=== PATIENT | male | born 1995 | race Two or more races ===

== ENCOUNTER 2022-02-14 10:59 | Outpatient (CLI) | payer OTHER, SELFPAY ==
[2022-02-14 15:23] LABS: SARS PCR* Negative SARS-CoV-2 (Negative)
== END 2022-02-14 11:00 | disposition home or self-care (01) ==
LOC: FBOREF 11:01
PROVIDERS: Visit Provider Orthopaedic Surgery
DX: Z20.822 Contact with and (suspected) exposure to COVID-19 (principal)
CPT/HCPCS: 87635

== ENCOUNTER 2022-02-18 09:31 | Day surgery (SDC) | payer OTHER, SELFPAY ==
[2022-02-18] VITALS (13 sets, daily range): BP systolic 100–128; BP diastolic 62–86; PULSE 56–78; RESP 16–18; TEMP 36.4–36.6; O2SAT 94–100; BMI 25.8
--- NOTE | 2022-02-18 09:44 | CRLHL7_ITS ---
For Patients: As a result of the Cures Act, medical imaging exams and procedure reports are released immediately into your electronic medical record. You may view this report before your referring provider. If you have questions, please contact your health care provider. INDICATION: Fracture. TECHNIQUE: Intraoperative C-arm fluoroscopy. IMPRESSION: Intraoperative C-arm fluoroscopy was provided. Fluoroscopy time 31.6 seconds. Three images were captured. Dictated by Pool Keane MD @ 02/18/2022 12:45:05 PM (Electronically Signed)
[2022-02-18] MEDS: LACTATED RINGERS 1000 ML 1,000 ML 100 ML IV (09:50)
[2022-02-18] MEDS: SODIUM CHLORIDE 0.9 % (FLUSH) 10 ML SYRINGE IVF (09:50)
[2022-02-18] MEDS: MIDAZOLAM HCL 1 MG/ML inj IVP (10:25)
[2022-02-18] MEDS: fentaNYL 100 MCG/2 ML inj IVP (10:25)
--- NOTE | 2022-02-18 10:27 | SUR.PREOP ---
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
--- NOTE | 2022-02-18 10:36 | W.PM.NB ---
Nerve Block Nerve Block Time Seen by Provider: 10:36 Date Seen: 02/18/22 Type of block requested by surgeon for post-operative analgesia: axillary Side: right Time out performed: Yes Verification of patient name: Yes Verification of date of : Yes Site marking: site marked Name of person performing procedure: [place] Continuous monitoring Was continuous monitoring of O2 sat, B/P, shelter monitor, recorded every 15 minutes?: Yes Procedure Checklist: sterile prep, needles and gloves Ultrasound guided. Images saved: Yes Medications given in 5ml increments after negative aspiration: Ropivicaine %: 0.5 mL: 20 Needle gauge: 22 and Lidocaine %: 2 mL: 10 Needle gauge: 22 Patient tolerated procedure well: Yes Additional comments: Needle noted adjacent to nerve Block Charges Block Charge (with Pro Fee): Brachial Plexus Use of Ultrasound Machine for Block: Yes- US Guidance/pain block
[2022-02-18] MEDS: CEFAZOLIN 2 GM INJ IVP (11:10)
--- NOTE | 2022-02-18 11:21 | SUR.OPER ---
PATIENT QUESTIONS ANSWERED SATISFACTORILY PREOPERATIVELY.? PATIENT BROUGHT TO OR #3 PER CART.? Patient positioned supine on OR #3 bed.? The perioperative?team supported arms bilaterally on arm boards.? Final approval of positioning by surgeon.?
--- NOTE | 2022-02-18 11:43 | P.ORPRC_ITS ---
Procedure Note Date of procedure: 02/18/22 Procedure: SURGEON: Tomas Butterfield MD OUTPATIENT PHARMACY MANAGER: BRYANNA Kline PREOPERATIVE DIAGNOSIS: Right hand reverse Mistry fracture POSTOPERATIVE DIAGNOSIS: Right hand reverse Mistry fracture NAME OF OPERATION: Closed reduction percutaneous pinning ANESTHESIA: Axillary block plus monitored anesthesia care ESTIMATED BLOOD LOSS: 0 mL COMPLICATIONS: None SPECIMENS: None DRAINS: None PREOPERATIVE ANTIBIOTICS: Ancef 2 grams INDICATIONS: The patient is a 26-year-old male who for injured his right hand, sustaining a reverse Mistry fracture. Since this is an unstable injury, reduction and pin fixation were recommended. The risks, benefits and expected outcomes were discussed in detail. These included but were not limited to: Infection, bleeding, injury to blood vessel or nerve, venous thromboembolism. All questions were answered to their sati sfaction. Use of an pharmacy affairs assistant was necessary throughout the case for patient positioning and safety, maintenance of the reduction, pin site dressing and splint application. PROCEDURE: An axillary block was placed by Anesthesia. The patient was placed supine on the operating room table. IV sedation was administered. The upper extremity was prepped and draped in the usual sterile fashion. The r eduction was obtained with longitudinal traction and volar force on the base of the small finger metacarpal. The image intensifier was used to confirm an anatomic reduction. We placed a 0.062 in K-wire retrograde through the base of the small finger metacarpal shaft, driving it into the base of the ring finger metacarpal shaft for. Its placement was confirmed with the image intensifier. We placed a 2nd 0.062 in K-wire just distal to this, driving it proximally across the fracture site, into the carpus. This construct was imaged in multiple views and was felt to have an excellent reduction with well placed pins. The pins were cut off and were appropriately dressed. A well-padded short-arm dorsovolar splint was applied. Sponge and needle counts were correct x2. The patient tolerated the procedure well. There were no apparent complications. They were carefully transferred to the hospital bed and taken to the postanesthesia care unit in satisfactory condition. PLAN: The patient will be discharged home. They will work on elevation of the hand. They will follow up in the office next week to assess the pin sites with three views of the hand out of the splint prior to being seen in preparation for cast immobilization. I will plan to see the patient at 6 weeks postoperatively to discontinue the cast and pins and mobilize his hand.
--- NOTE | 2022-02-18 11:57 | W.ANESCHARGE ---
Anesthesia Charges Start Date/Time Anesthesia Start Date: 02/18/22 Anesthesia Start Time: 10:58 Stop Date/Time Anesthesia Stop Date: 02/18/22 Anesthesia Stop Time: 11:50 Summary Emergency: No
--- NOTE | 2022-02-18 12:37 | W.ANESCHARGE ---
Anesthesia Charges Start Date/Time Anesthesia Start Date: 02/18/22 Anesthesia Start Time: 10:58 Stop Date/Time Anesthesia Stop Date: 02/18/22 Anesthesia Stop Time: 11:50 Summary Emergency: No
== END 2022-02-18 14:43 | disposition home or self-care (01) ==
PROVIDERS: Visit Provider Orthopaedic Surgery
PROC: (CPT 26615; principal; 2022-02-18 11:00)
DX: S62.211A Bennett's fracture, right hand, initial encounter for closed fracture (principal)
CPT/HCPCS: 26650; 01820; 64415; 73130; 76000; 76942; A4580; J0690; J2250; J2704; J2795; J3010; J7120